=== PATIENT | female | born 1970 | race Caucasian/White ===

== ENCOUNTER 2020-11-02 09:04 | Emergency (ER) | payer BC ==
[~2020-11-02] VITALS: Ht 162.6 cm; Wt 95.3 kg
[2020-11-02] MEDS ORDERED: SODIUM CHLORIDE 0.9% 100 ML ONE (09:20)
[2020-11-02] MEDS ORDERED: CASIRIVIMAB/IMDEVIMAB 10 ML in SODIUM CHLORIDE 0.9% 100 ML IV ONE (09:30)
== END 2020-11-02 10:29 | disposition home or self-care (01) ==
LOC: ER 09:15
DX: R05 Cough (principal); U07.1 COVID-19; E11.9 Type 2 diabetes mellitus without complications
CPT/HCPCS: 99283; J7050